=== PATIENT | female | born 1990 | race Caucasian/White ===

== ENCOUNTER 2020-05-19 19:49 | Observation (INO) | payer OTHER, SELFPAY ==
[~2020-05-19] VITALS: Ht 154.9 cm; Wt 81.6 kg
[2020-05-19 20:19] VITALS: BP 128/82
[2020-05-19 20:50] LABS: BASOPHILS # (AUTO) 0.1 K/uL (0.00-0.22); BASOPHILS % (AUTO) 0.4 % (0.0-2.0); EOSINOPHILS # (AUTO) 0.2 K/uL (0-0.4); EOSINOPHILS % (AUTO) 1.5 % (0.0-4.0); HEMATOCRIT 38.8 % (36-48); HEMOGLOBIN 12.5 g/dL (12.0-16.0); LYMPHOCYTES # (AUTO) 2.1 K/uL (2.5-16.5); LYMPHOCYTES % (AUTO) 13.3 % (20.5-51.1); MEAN CORPUSCULAR HEMOGLOBIN 25 pg (27-31); MEAN CORPUSCULAR HGB CONC 32 g/dL (33-37); MEAN CORPUSCULAR VOLUME 78.5 fL (80-94); MONOCYTES # (AUTO) 0.9 K/uL (0.8-1.0); MONOCYTES % (AUTO) 5.6 % (1.7-9.3); NEUTROPHILS # (AUTO) 12.7 K/uL (1.8-7.7); NEUTROPHILS % (AUTO) 79.2 % (42.2-75.2); PLATELET COUNT (AUTO) 334 K/uL (140-450); RED BLOOD CELL COUNT(AUTO) 4.95 MIL/uL (4.20-5.40); RED CELL DISTRIBUTION WIDTH 16.2 % (11.6-13.7)
[2020-05-19] MEDS ORDERED: NACL 0.9% 1,000 ML IV ONE ×2 (20:50→22:10)
[2020-05-19] MEDS ORDERED: MORPHINE SULFATE 4 MG/ML SYR IVP ONE ×2 (20:50→22:10)
[2020-05-19] MEDS ORDERED: ONDANSETRON 4 MG/2 ML VIAL IVP ONE ×2 (20:50→22:10)
[2020-05-19 21:08] LABS: ALBUMIN 3.7 g/dL (3.4-5.0); ANION GAP 11.3 (8-16); CARBON DIOXIDE 27.4 mmol/L (21-32); CREATININE 0.7 mg/dL (0.6-1.3); POTASSIUM 3.7 mmol/L (3.5-5.1); TOTAL BILIRUBIN 0.2 mg/dL (0.0-1.0)
[2020-05-19] MEDS ORDERED: metroNIDAZOLE 500 MG/NS PREMIX 100 ML IV ONE (21:50)
--- NOTE | 2020-05-19 22:00 | NUR ---
PT HAS 10/10 PAIN IN EPIGASTRIC AREA THAT COMES AND GOES FOR 1 HOUR.
[2020-05-19] MEDS ORDERED: cefTRIAXone 1,000 MG VIAL ONE (22:06)
--- NOTE | 2020-05-19 22:15 | NUR ---
PT PROVIDED WITH BLANKETS PER REQUEST.
--- NOTE | 2020-05-19 23:50 | NUR ---
PT PROVIDED WITH PADS PER REQUEST. PT AMBULATED TO RR WITH STEADY GAIT AND BACK TO BED. SIDE RAILS X2, BED LOCKED IN LOWEST POSITION. ALL NEEDS MET AT THIS TIME.
[2020-05-20] MEDS ORDERED: MORPHINE SULFATE 4 MG/ML SYR IVP PRN
--- NOTE | 2020-05-20 00:13 | NUR ---
majo swab collected and sent to lab.
--- NOTE | 2020-05-20 02:00 | NUR ---
PT IN STABLE CONDITION AND SLEEPING. EQUAL RISE AND FALL OF CHEST WALL. SIDE RAILS X2, BED LOCKED IN LOWEST POSITION. ALL NEEDS MET AT THIS TIME.
--- NOTE | 2020-05-20 03:20 | NUR ---
PT AMBULATED TO WITH STEADY GAIT AND BACK TO BED. PROVIDED WITH EXTRA BLANKETS PER REQUEST. ALL PT'S NEEDS MET AT THIS TIME. SIDE RAILS X2, BED LOCKED IN LOWEST POSITION. ALL NEEDS MET AT THIS TIME.
[2020-05-20 04:35] LABS: APPEARANCE,URINE HAZY (CLEAR); BILIRUBIN,URINE NEGATIVE (NEGATIVE); BLOOD, URINE 3+ (NEGATIVE); COLOR,URINE YELLOW (YELLOW); LEUKOCYTE ESTERASE ,URINE 1+ (NEGATIVE); NITRITE, URINE NEGATIVE (NEGATIVE); UGLUCOSE NEGATIVE (NEGATIVE)
--- NOTE | 2020-05-20 07:05 | NUR ---
REPORT GIVEN TO OPP BOOKER. TRANSFER OF CARE AT THIS TIME.
--- NOTE | 2020-05-20 08:08 | NUR ---
Patient will be admitted to care of Dr Graham. Admited to med surg. Will go to [id number]. Belongings list completed. Report to POP Sprague.
[2020-05-20 08:18] VITALS: BP 113/71
--- NOTE | 2020-05-20 08:18 | NUR ---
RECEIVED PT FROM DIRECTOR. NO REPORT PROVIDED, VITALS OBTAINED, MRSA SWAB OBTAINED, PT HAS RIGHT AC 20G INFUSING NS AT 100 ML/H, PT IS STABLE, WILL CONTINUE TO MONITOR.
[2020-05-20] MEDS ORDERED: DOCUSATE SODIUM 100 MG GELCAP PO PRN (08:30)
[2020-05-20] MEDS ORDERED: POTASSIUM CHLORIDE 10 MEQ TABER PO PRN (08:30)
[2020-05-20] MEDS ORDERED: ACETAMINOPHEN 325 MG TAB PO PRN ×2 (08:30→10:45)
[2020-05-20] MEDS ORDERED: ONDANSETRON 4 MG/2 ML VIAL IM/IVP PRN (08:30)
[2020-05-20] MEDS ORDERED: LORazepam 2 MG/ML VIAL IM/IVP PRN (08:30)
[2020-05-20] MEDS ORDERED: metroNIDAZOLE 500 MG/NS PREMIX 100 ML IV SCH (08:35)
--- NOTE | 2020-05-20 08:50 | NUR ---
OBTAINED CONSENT FOR SURGERY, PT WHEELED OUT TO OR, PT OFF UNIT.
[2020-05-20] MEDS ORDERED: BUPIVACAINE-MPF 0.25% 30 ML VIAL INJ ONE (09:21)
[2020-05-20] MEDS: NACL 0.9% 1,000 ML IV SCH ×3 (10:00→20:37)
[2020-05-20] MEDS ORDERED: MORPHINE SULFATE 4 MG/ML SYR IV PRN (10:45)
[2020-05-20] MEDS ORDERED: ONDANSETRON 4 MG/2 ML VIAL IV PRN (10:45)
[2020-05-20] MEDS ORDERED: HYDROmorphone 1 MG/ML AMP IVP PRN ×2 (10:45→11:00)
[2020-05-20] MEDS ORDERED: ONDANSETRON 4 MG/2 ML VIAL IVP PRN (11:00)
--- NOTE | 2020-05-20 11:40 | NUR ---
PT BACK FROM OR, PT IS STABLE, PT HAS RIGHT HAND 22G, PT IS S/P LAB ANAHI WITH 4 ABD BANDAGES-DRY AND INTACT, PT IS STABLE. SCD ON, BED IN LOW POSITION, SAFETY MEASURES IN PLACE, CALL LIGHT WITHIN REACH, WILL CONTINUE TO MONITOR.
--- NOTE | 2020-05-20 12:04 | NUR ---
ADMINISTERED NORCO FOR ABD PAIN 6/10, SHARP. MEDICATION EDUCATION PROVIDED. PT TOLERATED WELL. PT IS STABLE, WILL CONTINUE TO MONITOR.
[2020-05-20 13:19] LABS: BASOPHILS % (AUTO) 0.1 % (0.0-2.0); HEMATOCRIT 38.7 % (36-48); HEMOGLOBIN 12.5 g/dL (12.0-16.0); LYMPHOCYTES # (AUTO) 0.6 K/uL (2.5-16.5); MEAN CORPUSCULAR HEMOGLOBIN 25 pg (27-31); MEAN CORPUSCULAR HGB CONC 32 g/dL (33-37); MEAN CORPUSCULAR VOLUME 78.2 fL (80-94); MONOCYTES # (AUTO) 0.2 K/uL (0.8-1.0); MONOCYTES % (AUTO) 1.3 % (1.7-9.3); NEUTROPHILS # (AUTO) 13.4 K/uL (1.8-7.7); NEUTROPHILS % (AUTO) 94.6 % (42.2-75.2); PLATELET COUNT (AUTO) 331 K/uL (140-450); RED BLOOD CELL COUNT(AUTO) 4.94 MIL/uL (4.20-5.40); RED CELL DISTRIBUTION WIDTH 16.8 % (11.6-13.7); WHITE BLOOD COUNT (AUTO) 14.2 K/uL (4.8-10.8)
[2020-05-20] MEDS: metroNIDAZOLE 500 MG/NS PREMIX 100 ML IV SCH ×2 (13:33→20:38)
--- NOTE | 2020-05-20 13:37 | NUR ---
ADMINISTERED SCHEDULED MEDICATION, MEDICATION EDUCATION PROVIDED. PT VERBALIZED UNDERSTANDING, PT TOLERATED WELL. PT IS STABLE, WILL CONTINUE TO MONITOR.
[2020-05-20 13:53] LABS: ANION GAP 13.1 (8-16); CARBON DIOXIDE 26.7 mmol/L (21-32); CREATININE 0.6 mg/dL (0.6-1.3); POTASSIUM 3.8 mmol/L (3.5-5.1)
[2020-05-20 14:07] LABS: CHOL/HDL RATIO 3.5 (1-4.5); MAGNESIUM 1.5 mg/dL (1.8-2.4); PHOSPHORUS 2.3 mg/dL (2.5-4.9); THYROID STIMULATING HORMONE 0.44 uIU/mL (0.34-3.74)
--- NOTE | 2020-05-20 15:44 | NUR ---
ADMINISTERED DILAUDID FOR SEVERE ABD PAIN 10/10, PT IS CRYING. MEDICATION EDUCATION PROVIDED. PT TOLERATED WELL, PT IS STABLE, WILL CONTINUE TO MONITOR.
[2020-05-20 16:00] VITALS: BP 118/73
[2020-05-20] MEDS ORDERED: HYDROcodone/APAP 5/325 MG 1 TAB TAB PO PRN ×2 (16:00)
[2020-05-20] MEDS ORDERED: POTASSIUM PHOSPHATE 15 MM in NACL 0.9% 250 ML IV SCH (16:00)
[2020-05-20] MEDS: MAG SULF 2000 MG/WATER PREMIX 50 ML IV PRN (16:06)
--- NOTE | 2020-05-20 16:22 | NUR ---
ADMINISTERED MAGNESIUM FOR MAGNESIUM OF 1.5, MEDICATION EDUCATION PROVIDED. PT TOLERATED WELL. PT IS STABLE, WILL CONTINUE TO MONITOR.
--- NOTE | 2020-05-20 18:31 | NUR ---
ADMINISTERED SCHEDULED MEDICATION, MEDICATION EDUCATION PROVIDED. PT TOLERATED WELL. PT HAS LEFT HAND 22G, PT IS STABLE, WILL CONTINUE TO MONITOR.
--- NOTE | 2020-05-20 19:15 | NUR ---
ENDORSE PT TO NIGHT NURSE FOR CONTINUITY OF CARE, PT IS STABLE
--- NOTE | 2020-05-20 19:21 | NUR ---
ADMINISTERED NORCO FOR ABD PAIN 11/16, MEDICATION EDUCATION PROVIDED. PT TOLERATED WELL. PT IS STABLE, WILL CONTINUE TO MONITOR.
[2020-05-20 20:00] VITALS: BP 136/70
--- NOTE | 2020-05-20 20:00 | NUR ---
RECEIVED BEDSIDE REPORT FROM DAY RN EARLIER FOR CONTINUITY OF CARE. PT A/A/OX4,AMBULATORY. PATIENT WAS COMPLAINING OF PAIN DURING ROUNDS AND DAY RN MEDICATED THE PT FOR PAIN ORDERED. SP LAP DEA. 4 LAP SITES C/D/I. IVF INFUSING ORDERED. CALL LIGHT WITHIN REACH. WILL CONTINUE POC.
[2020-05-20] MEDS ORDERED: ZOLPIDEM 5 MG TAB PO PRN (21:00)
--- NOTE | 2020-05-20 22:00 | NUR ---
ADMINISTERED ALL SCHEDULED MEDICATIONS ORDERED. PT TOLERATED IT WELL. NO ADVERSE DRUG REACTIONS NOTED.
--- NOTE | 2020-05-21 | NUR ---
PT ASLEEP. VISIBLE CHEST RISE AND FALL NOTED.SAFETY MEASURES IN PLACED.
[2020-05-21] MEDS: MORPHINE SULFATE 2 MG/ML SYR IVP PRN ×2 (02:03→08:03)
--- NOTE | 2020-05-21 02:05 | NUR ---
PT CALLED AND C/O ABDOMINAL PAIN.MEDICATED THE PT FOR PAIN ORDERED. CALL LIGHT WITHIN REACH
[2020-05-21 04:00] VITALS: BP 131/82
--- NOTE | 2020-05-21 04:00 | NUR ---
VITAL SIGNS STABLE, AFEBRILE, SATING 99% ON RA. PT NOT IN ANY DISTRESS. NO COMPLAIN OF PAIN. CALL LIGHT WITHIN REACH.
[2020-05-21] MEDS: NACL 0.9% 1,000 ML IV SCH (04:42)
[2020-05-21] MEDS: metroNIDAZOLE 500 MG/NS PREMIX 100 ML IV SCH ×2 (04:42→13:19)
[2020-05-21 06:28] LABS: BASOPHILS % (AUTO) 0.2 % (0.0-2.0); EOSINOPHILS % (AUTO) 0.2 % (0.0-4.0); HEMATOCRIT 33.6 % (36-48); HEMOGLOBIN 10.9 g/dL (12.0-16.0); LYMPHOCYTES # (AUTO) 1.9 K/uL (2.5-16.5); LYMPHOCYTES % (AUTO) 21.5 % (20.5-51.1); MEAN CORPUSCULAR HEMOGLOBIN 26 pg (27-31); MEAN CORPUSCULAR HGB CONC 32 g/dL (33-37); MEAN CORPUSCULAR VOLUME 78.9 fL (80-94); MONOCYTES # (AUTO) 0.6 K/uL (0.8-1.0); NEUTROPHILS # (AUTO) 6.4 K/uL (1.8-7.7); NEUTROPHILS % (AUTO) 71.1 % (42.2-75.2); PLATELET COUNT (AUTO) 311 K/uL (140-450); RED BLOOD CELL COUNT(AUTO) 4.26 MIL/uL (4.20-5.40)
--- NOTE | 2020-05-21 06:44 | NUR ---
PATIENT STABLE. NO SIGN AND SYMPTOMS OF DISTRESS NOTED AT THIS TIME. NO COMPLAIN FROM THE PT.ALL NEEDS ATTENDED.WILL ENDORSE THE PT TO THE ONCOMING RN FOR CONTINUITY OF CARE.CALL LIGHT WITHIN REACH.
[2020-05-21 06:52] LABS: ANION GAP 11.1 (8-16); CARBON DIOXIDE 24.5 mmol/L (21-32); CREATININE 0.5 mg/dL (0.6-1.3); POTASSIUM 3.6 mmol/L (3.5-5.1)
[2020-05-21 06:59] LABS: MAGNESIUM 1.7 mg/dL (1.8-2.4); PHOSPHORUS 2.9 mg/dL (2.5-4.9)
--- NOTE | 2020-05-21 07:10 | NUR ---
RECEIVED ENDORSEMENT FROM QUALITATIVE FIELD PROJECT MANAGER, AWAKE,ALERT, ORIENTEDX4 BREATHING SPONTANEOUSLY AT ROOM AIR, NOT IN DISTRESS NOTED, WITH ONGOING IV FLUID WITH 0.9% NS AT 100ML/HOUR INFUSING AT LEFT HAND G20 IV CANNULA NOTED. WITH DRY AND INTACT DRESSING AT STATUS POST LAP WITH 4 HOLES NOTED. SAFETY MEASURES IN PLACE AND CONTINUE MONITOR.
--- NOTE | 2020-05-21 08:05 | NUR ---
COMPLAINED OF ABDOMINAL PAIN 08/16, MORPHINE 2MG IV ORDERED PRN GIVEN, BREATHING EXERCISE INSTRUCTED, VERBALIZED UNDERSTANDING
--- NOTE | 2020-05-21 10:40 | NUR ---
PATIENT HAS BEEN SCREENED AND CATEGORIZED MODERATE NUTRITION RISK. PATIENT WILL BE SEEN WITHIN 3-5 DAYS OF ADMISSION. 05/23/20 - 05/25/20 ADDIE AVENDANO MBA, RD
[2020-05-21] MEDS: MAG SULF 2000 MG/WATER PREMIX 50 ML IV PRN (11:10)
--- NOTE | 2020-05-21 11:10 | NUR ---
LOW MAGNESIUM LEVEL-1.7, MAGNESIUM 2000MG IV DRIP 50ML OVER 2 HOURS STARTED AT 25ML/HOUR AT LEFT, IV SITE PATENT NOTED.
--- NOTE | 2020-05-21 11:21 | NUR ---
MAGNESIUM LEVEL-1.7, MAGNESIUM 2GM 50ML AT 25ML/HOUR ORDERED PRN GIVEN Addendum: 05/25/20 at 0740 by Rayna Goldberg RN ACTUAL TIME STARTED AT 1110H.
[2020-05-21] MEDS ORDERED: IBUP-2213 PO (11:22)
[2020-05-21] MEDS ORDERED: DOCU-299 PO (11:22)
--- NOTE | 2020-05-21 13:10 | NUR ---
ABOVE MAGNESIUM 2000MG 50ML IV DRIP COMPLETED.
--- NOTE | 2020-05-21 13:19 | NUR ---
METRONIDAZOLE 500MG 100ML IVPB STARTED AT LEFT HAND.
--- NOTE | 2020-05-21 13:33 | NUR ---
COMPLAINED OF ABDOMINAL PAIN 12/16. MORPHINE 4MG IV ORDERED PRN GIVEN, KEPT COMFORTABLE TO BED. DUE MEDICATION GIVEN
--- NOTE | 2020-05-21 14:19 | NUR ---
ABOVE METRONIDAZOLE 500MG 100ML IVPB COMPLETED, NO ADVERSE REACTION NOTED.
--- NOTE | 2020-05-21 14:42 | NUR ---
ABOVE IV FLUID 0.9% NS 1L AT 100ML/HOUR COMPLETED.
[2020-05-21 14:44] VITALS: BP 109/66
--- NOTE | 2020-05-21 15:15 | NUR ---
MINIMAL TOLERABLE ABDOMINAL PAIN CLAIMED,PREPARED FOR DISCHARGE, IV CANNULA REMOVED AND DRESSING APPLIED, NO BLEEDING NOTED. APPOINTMENT TO DR. DEE, SURGERY AND INSTRUCTION GIVEN, VERBALIZED UNDERSTANDING
--- NOTE | 2020-05-21 16:05 | NUR ---
DISCHARGED IN STABLE CONDITION, BREATHING SPONTANEOUSLY AT ROOM AIR, PER WHEELCHAIR ACCOMPANIED TO HOSPITAL LOBBY AND PICKED BY FAMILY.
== END 2020-05-21 16:33 | disposition home or self-care (01) ==
LOC: MED 19:49 → INTOOBSV 05-20 00:03 → MMU 05-20 00:03
DX: A41.9 Sepsis, unspecified organism (principal); K80.00 Calculus of gallbladder with acute cholecystitis without obstruction; Z20.828 Contact with and (suspected) exposure to other viral communicable diseases; E86.0 Dehydration; R74.01 Elevation of levels of liver transaminase levels; N39.0 Urinary tract infection, site not specified
CPT/HCPCS: 36415; 47562; 71045; 74176; 76705; 80048; 80053; 80061; 81001; 82150; 82374; 83036; 83605; 83690; 83735; 83880; 84100; 84134; 84443; 85025; 85610; 85730; 86886; 86900; 86901; 87040; 87081; 87086; 87426; 88304; 96361; 96365; 96366; 96367; 96372; 96375; 96376; 99285; C1887; G0378; J0696; J1170; J1644; J2270; J2405; J3475; J3490; J7030; J7060

== ENCOUNTER 2020-07-05 12:18 | Emergency (ER) | payer OTHER, SELFPAY ==
[~2020-07-05] VITALS: Ht 154.9 cm; Wt 87.1 kg
[~2020-07-05 12:18] MED LIST: DOCU-299 PO; IBUP-2213 PO
[2020-07-05 12:25] VITALS: BP 106/62
[2020-07-05] MEDS ORDERED: DICYCLOMINE HCL LIQUID 20 MG, ALUMINUM HYD/MAG/SIMETHICONE 30 ML, LIDOCAINE VISCOUS 2% ... PO ONE ×3 (12:35)
[2020-07-05] MEDS ORDERED: DICYCLOMINE HCL LIQUID 10 MG/5 ML UDC ONE (12:54)
[2020-07-05] MEDS ORDERED: LIDOCAINE VISCOUS 2% 20 ML UDC ONE (12:54)
[2020-07-05] MEDS ORDERED: ALUMINUM HYD/MAG/SIMETHICONE 30 ML UDC ONE (12:54)
[2020-07-05 13:12] VITALS: BP 110/64
== END 2020-07-05 13:13 | disposition home or self-care (01) ==
LOC: MED 12:18
DX: K21.9 Gastro-esophageal reflux disease without esophagitis (principal); N39.0 Urinary tract infection, site not specified; R11.0 Nausea; F17.200 Nicotine dependence, unspecified, uncomplicated; Z98.890 Other specified postprocedural states; Z79.899 Other long term (current) drug therapy; Z90.49 Acquired absence of other specified parts of digestive tract
CPT/HCPCS: 81002; 81025; 99283